=== PATIENT | male | born 2000 | race Caucasian/White ===

== ENCOUNTER 2024-04-30 19:48 | Emergency (ER) | payer SELFPAY ==
[~2024-04-30] VITALS: Ht 167.6 cm; Wt 72.6 kg
[2024-04-30] MEDS ORDERED: TETRAcaine 5 ML BOTTLE ONE (20:26)
[2024-04-30] MEDS: TETRACAINE HCL 0.5% OPHTALMIC 15 ML BOTTLE OP ONE (20:27)
[2024-04-30] MEDS ORDERED: POLY10DR3 EACHEYE (20:59)
[2024-04-30 21:05] VITALS: BP 133/77; TEMP 98.1; O2SAT 98
== END 2024-04-30 21:05 | disposition home or self-care (01) ==
LOC: ER 19:56
DX: T15.01XA Foreign body in cornea, right eye, initial encounter (principal); W44.8XXA Other foreign body entering into or through a natural orifice, initial encounter; Y93.89 Activity, other specified; Y92.89 Other specified places as the place of occurrence of the external cause; Y99.8 Other external cause status